=== PATIENT | female | born 1980 | race African-American/Black ===

== ENCOUNTER 2016-08-24 15:37 | Emergency (ER) | payer OTHER ==
[~2016-08-24] VITALS: Ht 160 cm; Wt 59.0 kg
[2016-08-24] MEDS ORDERED: MONONESSA1 EACH PO (16:00)
[2016-08-24] MEDS ORDERED: XANAX1 MG PO (16:00)
[2016-08-24] MEDS ORDERED: SEROQUEL 25 MG25 M1 PO (16:01)
[2016-08-24] MEDS ORDERED: CELEXA20 MG PO (16:01)
[2016-08-24] MEDS ORDERED: VENTOLIN HFA 1818 GM INH (16:01)
[2016-08-24] MEDS ORDERED: SKELAXIN 800 M800 M1 PO (16:59)
[2016-08-24 17:16] VITALS: BP 120/80
== END 2016-08-24 17:17 | disposition home or self-care (01) ==
LOC: ER 15:37
DX: S09.11XA Strain of muscle and tendon of head, initial encounter (principal); J45.909 Unspecified asthma, uncomplicated; F41.9 Anxiety disorder, unspecified; V43.52XA Car driver injured in collision with other type car in traffic accident, initial encounter; Y93.I9 Activity, other involving external motion; Y92.488 Other paved roadways as the place of occurrence of the external cause; Y99.9 Unspecified external cause status

== ENCOUNTER 2017-06-26 10:48 | Emergency (ER) | payer OTHER ==
[~2017-06-26] VITALS: Ht 160 cm; Wt 66.7 kg
[~2017-06-26 10:48] MED LIST: CELEXA20 MG PO; MONONESSA1 EACH PO; SEROQUEL 25 MG25 M1 PO; SKELAXIN 800 M800 M1 PO; VENTOLIN HFA 1818 GM INH; XANAX1 MG PO
[2017-06-26] MEDS ORDERED: LAMOTRIGINE200 MG PO (11:07)
[2017-06-26] MEDS ORDERED: NORFLEX100 MG PO (13:22)
[2017-06-26] MEDS ORDERED: NAPROSYN500 MG PO (13:22)
== END 2017-06-26 14:05 | disposition home or self-care (01) ==
LOC: ER 10:48
DX: S16.1XXA Strain of muscle, fascia and tendon at neck level, initial encounter (principal); M79.631 Pain in right forearm; J45.909 Unspecified asthma, uncomplicated; F41.9 Anxiety disorder, unspecified; F10.99 Alcohol use, unspecified with unspecified alcohol-induced disorder; V89.2XXA Person injured in unspecified motor-vehicle accident, traffic, initial encounter; Y93.89 Activity, other specified; Y92.89 Other specified places as the place of occurrence of the external cause; Y99.8 Other external cause status